=== PATIENT | male | born 2000 | race Hispanic/Latino ===

== ENCOUNTER 2025-04-07 18:20 | Emergency (ER) | payer BC, SELFPAY ==
[2025-04-07 18:21] VITALS: BP 121/74
[2025-04-07 18:42] LABS: Hematocrit 40.6 % (39.0-52.0); Hemoglobin 14.1 g/dL (13.0-18.0); Mean Corp Hgb Conc. 34.7 g/dL (33.0-37.0); Mean Corpuscular Volume 87.1 fL (80.0-94.0); Nucleated Red Blood Cells % 0 % (-); Platelet Count 213 10^3/uL (130-400); Red Cell Dist. Width 13.2 % (11.5-14.5)
[2025-04-07 18:59] LABS: ALT (SGPT) 17 U/L (0-50); AST (SGOT) 22 U/L (17-59); Albumin 4.8 g/dl (3.5-5.0); Alkaline Phosphatase 64 U/L (38-126); Blood Urea Nitrogen 13 mg/dl (9-20); Calcium 9.1 mg/dl (8.4-10.2); Carbon Dioxide 27 mmol/L (22-30); Chloride 106 mmol/L (98-107); Glucose 88 mg/dl (70-99); Potassium 3.9 mmol/L (3.5-5.1); Sodium 142 mmol/L (135-145); Total Protein 7.3 g/dl (6.3-8.2); eGFR > 60.00
--- NOTE | 2025-04-07 22:05 | ED.GENMED ---
History of Present Illness
General
Chief Complaint: Headache
Source: patient
Exam Limitations: none
Time Seen by Provider: 04/07/25 22:02
Nursing documentation reviewed up to this point in time: agreed with
History of Present Illness
History of Present Illness:
Note:
CHIEF COMPLAINT(S)
Headache for one week
HISTORY OF PRESENT ILLNESS
The patient is a 25-year-old male with a history of boxing who presents with complaints of headache persisting for one week. The headache initially started insidiously about two weeks ago but became more pronounced a week ago. The patient describes
the headache as being localized to the front of the head and reports that it exacerbates upon sudden movements, changes in position, blowing their nose, sneezing, or attempting to run. The patient has been unable to run this week due to pain, which
also radiates to the back of the head when running. The patient engages in boxing sessions approximately four times a week, participating in sparring and wearing protective headgear. Despite taking hits during boxing, they report never having been
knocked out or suffered from significant head trauma, with the last notable hit occurring about four weeks ago. There have been no notable visual disturbances or other systemic symptoms. The patient denies any history of headache prior to this
episode. A computed tomography (CT) scan of the brain is planned to rule out significant abnormalities, given the novelty of the symptoms.
ADDITIONAL HISTORY OBTAINED FROM SOURCES OTHER THAN THE PATIENT
The patients father was present during the consultation. No specific information was obtained from him.
EXTERNAL RECORDS REVIEWED
The patient reports a previous medical encounter for a tick bite approximately a month and a half ago, for which they were administered antibiotics. Blood tests performed then returned negative results.
PHYSICAL EXAM
General: Alert, no acute distress.
Skin: Warm, dry.
Head: Normocephalic, atraumatic.
Neck: Supple, trachea midline.
Eye, Ears, Nose, Mouth, and Throat: Oral mucosa moist.
Cardiovascular: Normal peripheral perfusion, no edema.
Respiratory: Respirations are non-labored.
Gastrointestinal: Abdomen nondistended.
Back: Normal range of motion, normal alignment.
Musculoskeletal: Normal range of motion, normal strength.
Neurological: Alert and oriented to person, place, time, and situation, no focal neurological deficit observed.
Psychiatric: Cooperative, appropriate mood & affect.
PLAN
1. Perform a CT scan of the brain to evaluate for any underlying pathology given the new onset of headache.
2. Discuss results with the patient post-imaging.
3. Reassure the patient regarding the low probability of serious pathology but stress the importance of checking as a precaution due to the new nature of symptoms.
DIFFERENTIAL DIAGNOSIS
The Differential Diagnosis includes, in no particular order and is not limited to:
1. Post-concussion syndrome
2. Tension headache
3. Migraine headache
4. Cervicogenic headache
5. Sinus headache
6. Dehydration-related headache
7. Intracranial mass lesion
8. Vascular headache
9. Temporal arteritis (less likely given age)
10. Subdural hematoma
CARE-UPDATE
04/07/25 - 23:33
CT Head displays no signs of cranial hemorrhage or tumor, and neurological examination is intact. Competitive boxing considered, ruling out concussion, but remain vigilant due to patients sports activity. Patient is stable and approved for
discharge; follow-up with primary care is advised. Return precautions provided.
Disposition:
SUMMARY OF ENCOUNTER
The patient, a 25-year-old male with a history of boxing, was seen in the emergency department for a headache persisting for one week. The headache became more pronounced a week ago and is localized to the front of the head, exacerbating upon sudden
movements. Given the new onset of symptoms and history of boxing, a CT scan of the brain was planned to rule out significant abnormalities.
DISPOSITION
Discharge
FOLLOW-UP INSTRUCTIONS
Follow-up with primary care is advised. Patient is provided with return precautions.
MEDICAL DECISION MAKING
- Complexity of Data Reviewed: Differential Diagnosis includes:
1. Post-concussion syndrome
2. Tension headache
3. Migraine headache
4. Cervicogenic headache
5. Sinus headache
6. Dehydration-related headache
7. Intracranial mass lesion
8. Vascular headache
9. Temporal arteritis (less likely given age)
10. Subdural hematoma
- Data:
Category 1: External records reviewed: Previous records reviewed indicating the patient was administered antibiotics for a tick bite approximately a month and a half ago.
Category 2: Clinical information was obtained with the patients father present, though no specific information was provided.
Category 3: The plan for a CT scan was made as a precaution, considering the novelty of symptoms and the patients boxing activities.
- Risk: Consideration of Admission/Observation: Escalation of care including admission/observation was considered given the complexity and risk of the patients presenting complaint. However, ultimately I feel the patient is safe for outpatient
management with close follow-up. Reasoning: The work-up is reassuring as neurological examination is intact, and the patient is stable with no signs of cranial hemorrhage or tumor.
DIAGNOSIS
Headache, unspecified (R51.9)
Past History
Past History
ED Past Medical History: None
ED Past Surgical History: None
Phy Exam
Physical Exam
Physical Exam:
.
Course
Orders/Labs/Results
Orders:
Orders
04/07/25 18:27
Complete Blood Count/With Diff Urgent
Comprehensive Metabolic Panel Urgent
04/07/25 22:14
CT Head W/o Iv Contrast Urgent
Comment:
Reason For Exam: new onset headache 2 wks, boxer
Abnormal Lab Results
04/07/25
18:27
RBC 4.66 L 10^6/uL
(4.70-6.10)
04/07/25 18:27
04/07/25 18:27
Vital Signs
Initial and Last Documented VS:
Initial Vital Signs
Temp Pulse Resp BP Pulse Ox
98.2 F 78 16 121/74 98
04/07/25 18:21 04/07/25 18:21 04/07/25 18:21 04/07/25 18:21 04/07/25 18:21
Last Documented Vital Signs
Temp Pulse Resp BP Pulse Ox
98.2 F 78 16 129/85 100
04/07/25 18:21 04/07/25 18:21 04/07/25 18:21 04/07/25 23:08 04/07/25 23:09
*Pulse Oximetry
SaO2: 98
Oxygen Mode of Delivery: Room air
Patient hypoxic: no
*Critical Care Note
Total Time (30-74mins, 75-104mins- exclusive of procedures): Not Applicable
ED Attending Note
-
Portions of this chart may have been created with voice recognition software.� Occasional wrong word or��sound alike� substitutions may have occurred due to the inherent limitations of voice recognition software.
Discharge Plan
Departure
Patient Disposition: Home (Routine Discharge)
Date of Disposition: 04/07/25
Time of Disposition: 23:34
Patient with high blood pressure during this ER visit?: Yes
Condition: Good
Discharge Problem:
Headache
Instructions: Headache, Adult (DC), BLOOD PRESSURE
Prescriptions:
No Action
phenylephrine-cocoa butter [Preparation H(pe,cb)] 1 EACH suppository
1 ea RC PRN PRN (Reason: hemorrhoids) Qty: 20 0RF
Activity Restrictions/Additional Instructions:
Follow up with primary care. Return for any concerns.
Interventions
Interventions:
*Risk Screen - Suicide Last Done: 04/07/25 18:21
*General Assessment Last Done: 04/07/25 23:08
*Neglect/Abuse Screening Last Done: 04/07/25 18:21
*ED- Fall Risk Assessment Last Done: 04/07/25 23:08
*ED COVID-19 Vaccine History Last Done: 04/07/25 23:08
ED- Neurological Assessment Last Done: 04/07/25 23:09
Discharge Date and Time
Print Language: CHINESE
[2025-04-07 23:08] VITALS: BP 129/85
== END 2025-04-07 23:50 | disposition home or self-care (01) ==
LOC: EMR 18:20
PROVIDERS: Emergency Medicine; EMERGENCY PHYSICIAN Emergency Medicine
DX: R51.9 Headache, unspecified (principal); R03.0 Elevated blood-pressure reading, without diagnosis of hypertension
CPT/HCPCS: 99284; 70450; 80053; 85025